=== PATIENT | female | born 1975 | race American Indian/Alaskan Native ===

== ENCOUNTER 2016-08-21 08:41 | Outpatient (CLI) | payer OTHER ==
--- NOTE | 2016-08-21 10:25 | Ultrasound Report ---
RIGHT UPPER QUADRANT ULTRASOUND: HISTORY: Right upper quadrant abdominal pain. Technique: Transabdominal ultrasound imaging with Doppler interrogation. FINDINGS: The gallbladder is sonolucent with no evidence of stones, polyps or wall thickening. The common duct is normal in caliber. Images of the liver parenchyma, pancreas, right kidney and aorta are within normal limits. No perihepatic ascites. IMPRESSION: Unremarkable right upper quadrant ultrasound.
--- NOTE | 2016-08-25 08:47 | Mammography Report ---
Screening mammogram: Routine views demonstrate a small irregular asymmetric density in the inferior right breast. No definite finding in the CC projection. The remainder of the breast pattern bilaterally are generally fatty replaced, symmetric, and unremarkable. CAD used. Impression: Right breast asymmetry. Recommendation: Additional imaging of the right breast. This patient's prior exams however are being requested for comparison. Please wait at least 30 days before pursuing the recommendation so that we may obtain prior exam for comparison report. BI-RADS CATEGORY: 0 = Needs additional imaging evaluation ACR BI-RADS MAMMOGRAPHIC CODES: 0 = Needs additional imaging evaluation; 1 = Negative; 2 = Benign; 3 = Probably benign; 4 = Suspicious; 5 = Malignant; 6 = Known biopsy-proven malignancy COMMENT: 1. Dense breast tissue, i.e., adenosis, fibrocystic changes, etc., may obscure an underlying neoplasm. 2. Approximately 10% of cancers are not detected with mammography. 3. A negative mammography report should not delay biopsy if a clinically suspicious mass is present.
== END 2016-08-21 08:42 | disposition home or self-care (01) ==
LOC: US 08:41
PROVIDERS: ATTEND Internal Medicine
DX: Z12.31 Encounter for screening mammogram for malignant neoplasm of breast (principal); R10.11 Right upper quadrant pain; I10 Essential (primary) hypertension
CPT/HCPCS: 76705; G0202; 77067

== ENCOUNTER 2016-09-11 05:51 | Day surgery (SDC) | payer OTHER ==
[2016-09-11] MEDS ORDERED: WATER FOR IRRIG STERILE IR ONE ×2 (07:14→07:17)
--- NOTE | 2016-09-11 07:20 | Anesthesia Day of Surgery ---
Anesthesia Day of Surgery - Day of Surgery Patient Examined: Yes Patient H&P Reviewed: Yes Patient is NPO: Yes
--- NOTE | 2016-09-11 07:21 | Anesthesia Consultation ---
Anesthesia Consult and Med Hx Date of service: 09/11/16 - Airway Anesthetic Teeth Evaluation: Good ROM Head & Neck: Adequate Mental/Hyoid Distance: Adequate Mallampati Class: Class II Intubation Access Assessment: Probably Good - Pulmonary Exam CTA: Yes - Cardiac Exam Cardiac Exam: RRR - Pre-Operative Health Status ASA Pre-Surgery Classification: ASA2 Proposed Anesthetic Plan: MAC - Pulmonary Hx Smoking: No - Cardiovascular System Hx Hypertension: Yes - Gastrointestinal Hx Gastroesophageal Reflux Disease: Yes
[2016-09-11] MEDS: NACL 0.9% 1000 ML 1,000 ML IV SCH ×2 (07:22→09:12)
[2016-09-11] MEDS ORDERED: DIPRIVAN 10 MG/ML IV ONE (07:25)
--- NOTE | 2016-09-11 07:53 | Short Stay Summary ---
Short Stay Documentation - Allergies and Medications Current Medications: Allergies oxycodone HCl [From Percocet] Allergy (Intermediate, Verified 10/31/15 21:46) Hives latex Allergy (Verified 09/11/16 07:23) Hives,BURNING SENSATION cyclobenzaprine HCl [From Flexeril] Adverse Reaction (Verified 09/11/16 07:23) Headache,HIVES Home Medications Medication Instructions Recorded Confirmed Last Taken Type Hydrochlorothiazide 25 mg PO 3XW 09/11/16 09/11/16 09/08/16 History NexIUM 40 mg PO DAILY 09/11/16 09/11/16 09/10/16 History Norvasc 5 mg PO DAILY 09/11/16 09/11/16 09/11/16 History Phentermine HCl 37.5 mg PO DAILY 09/11/16 09/11/16 09/04/16 History Active Medications Sodium Chloride (Nacl 0.9% 1000 Ml) 1,000 mls @ 50 mls/hr IV DIRECT LYNN Last Admin: 09/11/16 07:22 Dose: 50 mls/hr - Brief post op/procedure progress note Date of procedure: 09/11/16 Pre-op diagnosis: 1. RUQ abdominal pain 2. Functional dyspepsia Post-op diagnosis: same (1. GERD 2. Gastritis) Procedure: EGD with biopsy Anesthesia: MAC Findings: as above Surgeon: AMANDEEP RILEY Estimated blood loss: none Pathology: list (1. Antrum) Specimen disposition: to lab Condition: stable - Disposition Condition at discharge: Stable Disposition: DC-01 TO HOME OR SELFCARE Short Stay Discharge Plan Activity: no restrictions Weight Bearing Status: Full Weight Bearing Diet: regular, low salt Follow up with: SOPHIA MCNEIL MD [Primary Care Provider] - 7 Days
--- NOTE | 2016-09-11 08:28 | Post Anesthesia Evaluation ---
- Post Anesthesia Evaluation Patient Participated: Yes Airway Patent: Yes Stable Respiratory Function: Yes Nausea/Vomiting: No Temp > 96.8F: Yes Pain Manageable: Yes Adequeate Hydration: Yes Anesthesia Complications: No Block Receding Appropriately: Not Applicable Patient on Ventilator: No
[2016-09-11 09:09] VITALS: BP 141/94
== END 2016-09-11 05:52 | disposition home or self-care (01) ==
LOC: GIO 05:51
PROVIDERS: ATTEND Internal Medicine Gastroenterology
DX: K29.50 Unspecified chronic gastritis without bleeding (principal); K21.9 Gastro-esophageal reflux disease without esophagitis; I10 Essential (primary) hypertension; G43.909 Migraine, unspecified, not intractable, without status migrainosus; E66.9 Obesity, unspecified; Z68.41 Body mass index [BMI] 40.0-44.9, adult; Z91.040 Latex allergy status; Z88.8 Allergy status to other drugs, medicaments and biological substances; Z98.890 Other specified postprocedural states; Z90.710 Acquired absence of both cervix and uterus; Z79.899 Other long term (current) drug therapy
CPT/HCPCS: 43239; 88305; 88342; J2704; J7030

== ENCOUNTER 2016-09-19 07:26 | Outpatient (CLI) | payer OTHER ==
[2016-09-19] MEDS ORDERED: WATER FOR INJ (PF) 10 ML ONE (09:14)
[2016-09-19] MEDS ORDERED: KINEVAC IV ONE (09:14)
--- NOTE | 2016-09-19 10:50 | Mammography Report ---
Spot magnification of focal asymmetry lower right breast in the upper left breast: Findings: There is complete effacement noted of the density at the lower right breast and upper left breast on spot views. No microcalcifications are distinct mass is seen. Impression: Benign findings. Annual followup recommended. BI-RADS CATEGORY: 2 = Benign ACR BI-RADS MAMMOGRAPHIC CODES: 0 = Needs additional imaging evaluation; 1 = Negative; 2 = Benign; 3 = Probably benign; 4 = Suspicious; 5 = Malignant; 6 = Known biopsy-proven malignancy COMMENT: 1. Dense breast tissue, i.e., adenosis, fibrocystic changes, etc., may obscure an underlying neoplasm. 2. Approximately 10% of cancers are not detected with mammography. 3. A negative mammography report should not delay biopsy if a clinically suspicious mass is present. COMMENT: Patient follow-up letters are generated in [employer].
== END 2016-09-19 07:27 | disposition home or self-care (01) ==
LOC: US 07:26
PROVIDERS: ATTEND Internal Medicine
DX: R92.8 Other abnormal and inconclusive findings on diagnostic imaging of breast (principal); I10 Essential (primary) hypertension
CPT/HCPCS: 77066; G0204; J2805

== ENCOUNTER 2016-09-19 07:36 | Outpatient (CLI) | payer OTHER ==
[2016-09-19] MEDS ORDERED: KINEVAC IV ONE ×2 (09:14→09:17)
[2016-09-19] MEDS ORDERED: WATER FOR INJ (PF) ONE (09:14)
--- NOTE | 2016-09-19 10:56 | Nuclear Medicine Report ---
HIDA WITH CCK INDICATION: RUQ pain. COMPARISON: None similar. FINDINGS: Dynamic right upper quadrant imaging performed in the anterior projection over 60 minutes following uneventful intravenous administration of 5 mCi of Technetium 99m Choletec. Prompt and homogenous hepatic radiotracer uptake with subsequent washout seen with gallbladder activity noted at 30 minutes. Liver appears enlarged. Bowel activity seen on imaging carried out to 90 minutes. Subsequently, 2.4 mcg of cholecystokinin infused intravenously over a period of 3 minutes with patients symptoms of nausea and cramping reproduced. The calculated ejection fraction is 94% (normal greater than 35%). CONCLUSION: 1. No evidence of cholecystitis. Patient's symptoms though reproduced following CCK. Hyperkinetic gallbladder may be correlated for clinically in an appropriate setting. 2. Possible hepatomegaly. Thank you for the opportunity to participate in this patient's care.
== END 2016-09-19 07:37 | disposition home or self-care (01) ==
LOC: NM 07:36
PROVIDERS: ATTEND Internal Medicine Gastroenterology
DX: R10.11 Right upper quadrant pain (principal); R11.0 Nausea; R25.2 Cramp and spasm
CPT/HCPCS: 78227; A9537; J2805; 77066; G0204

== ENCOUNTER 2016-10-24 11:08 | Day surgery (SDC) | payer OTHER ==
[~2016-10-24 11:08] MED LIST: ANCEF/STERILE WATER 2 GM/20 ML IV NR; MARCAINE 0.25% INFILTRATI ONE; NACL 0.9% IR ONE; PEPCID PO NR; VERSED IV NR
--- NOTE | 2016-10-24 11:47 | Anesthesia Consultation ---
Anesthesia Consult and Med Hx Date of service: 10/24/16 - Airway Anesthetic Teeth Evaluation: Good ROM Head & Neck: Adequate Mental/Hyoid Distance: Adequate Mallampati Class: Class II Intubation Access Assessment: Probably Good - Pulmonary Exam CTA: Yes - Cardiac Exam Cardiac Exam: RRR - Pre-Operative Health Status ASA Pre-Surgery Classification: ASA2 Proposed Anesthetic Plan: General - Pulmonary Hx Smoking: No Hx Sleep Apnea: No (MIRYAM PRE SCREEN HIGH RISK) - Cardiovascular System Hx Hypertension: Yes (X 3 YRS) - Central Nervous System Hx Back Pain: Yes (NECK AND BACK PAIN) - Gastrointestinal Hx Gastroesophageal Reflux Disease: Yes - Other Systems Hx Cancer: No Hx Obesity: Yes
--- NOTE | 2016-10-24 11:47 | Anesthesia Day of Surgery ---
Anesthesia Day of Surgery - Day of Surgery Patient Examined: Yes Patient H&P Reviewed: Yes Patient is NPO: Yes
[2016-10-24] MEDS: LACTATED RINGERS 1,000 ML IV SCH ×2 (11:57→16:47)
[2016-10-24] MEDS ORDERED: PEPCID PO NR (12:12)
[2016-10-24] MEDS ORDERED: MARCAINE 0.25% INFILTRATI ONE (14:23)
[2016-10-24] MEDS ORDERED: ZEMURON IV ONE (14:24)
[2016-10-24] MEDS ORDERED: DILAUDID ONE ×2 (14:24→16:11)
[2016-10-24] MEDS ORDERED: XYLOCAINE MPF 2% ONE (14:24)
[2016-10-24] MEDS ORDERED: QUELICIN ONE (14:24)
[2016-10-24] MEDS ORDERED: DIPRIVAN 10 MG/ML IV ONE (14:24)
[2016-10-24] MEDS ORDERED: DECADRON ONE (15:10)
[2016-10-24] MEDS ORDERED: ZOFRAN ONE (15:10)
[2016-10-24] MEDS ORDERED: TORADOL ONE (16:05)
[2016-10-24] MEDS ORDERED: NORCO 5/325 ONE (16:06)
[2016-10-24] MEDS: DILAUDID IV PRN ×2 (16:10→16:20)
[2016-10-24] MEDS ORDERED: TORADOL IV PRN (16:14)
[2016-10-24] MEDS ORDERED: ZOFRAN IV PRN (16:14)
--- NOTE | 2016-10-24 16:37 | Post Operative Note ---
Pre-op diagnosis: Biliary dyskinesia Post-op diagnosis: same Findings: cholesterolosis Procedure: laparoscopic cholecystectomy Anesthesia: GETA Surgeon: NICANOR MAX [employer] Contact Worker: JASMINA MCWILLIAMS Estimated blood loss: minimal Pathology: list (gallbladder) Specimen disposition: to lab Condition: stable Disposition: PACU
--- NOTE | 2016-10-24 16:40 | Discharge Summary ---
Short Stay Discharge Plan Weight Bearing Status: Full Weight Bearing Diet: regular Wound: open to air Follow up with: SOPHIA MCNEIL MD [Primary Care Provider] - 7 Days Prescriptions: HYDROcodone/APAP 7.5-325 [Bouton 7.5-325 mg TAB] 1 each PO Q6HR PRN #20 tablet PRN Reason: Pain Ondansetron [Zofran TAB] 4 mg PO Q8HR PRN #14 tablet PRN Reason: Nausea traMADol [Ultram 50 MG tab] 50 mg PO Q6HR PRN #14 tablet PRN Reason: Pain
[2016-10-24] MEDS ORDERED: NORCO 5/325 PO ONE (17:15)
[2016-10-24 17:59] VITALS: BP 123/70
--- NOTE | 2016-10-24 21:35 | Operative Report ---
PREOPERATIVE DIAGNOSIS: Biliary dyskinesia. POSTOPERATIVE DIAGNOSES: Biliary dyskinesia plus cholesterolosis of the gallbladder. OPERATIVE PROCEDURE: Laparoscopic cholecystectomy. ANESTHESIA: General endotracheal. SURGEON: Riki Birch MD DENIER CONTROL OPERATOR: Bernice Georges MD SPECIMENS: Gallbladder. BLOOD LOSS: Minimal. INDICATIONS: The patient is a 41-year-old female patient with a BMI of 42, presenting with recurrent right upper quadrant pain. Ultrasound of the gallbladder was normal. HIDA scan showed a 90% ejection fraction, but she has reproducible symptoms. She is brought in for a laparoscopic cholecystectomy. She has undergone an umbilical hernia repair with mesh several years ago. FINDINGS: Omental adhesions to the mesh that was placed in the umbilical area. No bowel adhesions were noted. Liver showed evidence of mild fatty infiltration. Gallbladder showed evidence of cholesterolosis. Cystic duct is of normal caliber. Bile duct did not show any dilatation. Visualized part of the bowel loops in the right upper quadrant appeared normal. DESCRIPTION OF PROCEDURE: After satisfactory induction of general endotracheal anesthesia, abdomen was prepped and draped. A right lateral flank incision was made and a Veress needle was inserted in the peritoneal cavity. After adequate carbon dioxide insufflation up to 15 mmHg, a 5 mm trocar was inserted, through this a 5 mm, 30-degree angle scope was placed and above findings were noted. Another 5 mm port was placed medially between the umbilicus and this trocar. The adhesions in the supraumbilical area between the mesh and the omentum were taken down using minimal amount of cautery. Another 5 mm port was placed above the umbilicus under direct visualization. Camera was changed to this location with the head up in the left side position, an 11 mm epigastric trocar was placed. Gallbladder was held at the fundus and at the infundibulum by the assisting surgeon. Cystic duct was well delineated. Cystic and bile duct junction was identified and after identifying the anatomy, the cystic duct clips were applied and as were away from the cystic bile duct junction as possible, the cystic duct was divided. Cystic artery likewise was identified and clips were applied and divided. Gallbladder was removed from the liver bed by using hook attached to cautery. No bleeding was encountered from the liver bed. After removing the gallbladder, it was retrieved into an EndoCatch bag and was pulled out through the epigastric trocar. Trocar was replaced and all the clips were inspected and found to be intact and hemostasis was quite adequate. Desufflation was done and all the trocars were removed under direct visualization. No bleeding was noted at the trocar sites. All the incisions were closed with 4-0 Monocryl sutures. There was minimal blood loss and she tolerated the procedure well and transferred to postanesthesia care unit in satisfactory condition. JOB# [id number] ALLISONN/LISA
== END 2016-10-24 18:20 | disposition home or self-care (01) ==
LOC: OR 11:08
PROVIDERS: ATTEND Surgery
DX: K82.8 Other specified diseases of gallbladder (principal); I10 Essential (primary) hypertension; K21.9 Gastro-esophageal reflux disease without esophagitis; F32.9 Major depressive disorder, single episode, unspecified; G43.109 Migraine with aura, not intractable, without status migrainosus; E66.9 Obesity, unspecified; Z68.41 Body mass index [BMI] 40.0-44.9, adult; Z90.710 Acquired absence of both cervix and uterus; Z98.890 Other specified postprocedural states; Z79.899 Other long term (current) drug therapy; Z91.040 Latex allergy status; Z88.8 Allergy status to other drugs, medicaments and biological substances; Z72.89 Other problems related to lifestyle; Z91.018 Allergy to other foods; Z80.0 Family history of malignant neoplasm of digestive organs; Z80.41 Family history of malignant neoplasm of ovary; Z80.3 Family history of malignant neoplasm of breast
CPT/HCPCS: 36415; 47562; 84132; 88304; J0690; J1100; J1170; J1885; J2250; J2405; J2704; J7120; J0330

== ENCOUNTER 2017-10-27 08:16 | Outpatient (CLI) | payer OTHER ==
--- NOTE | 2017-10-27 16:32 | Mammography Report ---
BILATERAL DIGITAL SCREENING MAMMOGRAM with CAD: 10/27/17 08:16:00 CLINICAL: Routine screening. COMPARISON: 09/19/16 FINDINGS: The breasts are mostly fatty with scattered bilateral fibroglandular densities.No mass, architectural distortion or suspicious calcifications. IMPRESSION: No mammographic evidence of malignancy. BI-RADS CATEGORY: 1 -- Negative RECOMMENDATION: Routine mammographic screening in one year. COMMENT: Patient follow-up letters are generated by our [employer] application.
== END 2017-10-27 08:17 | disposition home or self-care (01) ==
LOC: MAMMO 08:16
PROVIDERS: ATTEND Internal Medicine
DX: Z12.31 Encounter for screening mammogram for malignant neoplasm of breast (principal); E66.9 Obesity, unspecified; I10 Essential (primary) hypertension; K21.9 Gastro-esophageal reflux disease without esophagitis; F32.9 Major depressive disorder, single episode, unspecified; Z91.040 Latex allergy status; Z91.018 Allergy to other foods; Z88.6 Allergy status to analgesic agent; Z88.5 Allergy status to narcotic agent; Z88.8 Allergy status to other drugs, medicaments and biological substances; Z90.710 Acquired absence of both cervix and uterus
CPT/HCPCS: 77067

== ENCOUNTER 2019-05-09 08:51 | Outpatient (CLI) | payer OTHER ==
--- NOTE | 2019-05-10 09:48 | Mammography Report ---
DIGITAL SCREENING MAMMOGRAM WITH CAD, 05/09/2019 INDICATION: Routine screening mammography. TECHNIQUE: Digital bilateral 2D mammography was obtained in the craniocaudal and mediolateral obliq ue projections. This examination was interpreted with the benefit of Computer-Aided Detection analysi s. COMPARISON: 10/27/2017 FINDINGS: Breast Density: There are scattered areas of fibroglandular density. There is no evidence of dominant mass, suspicious calcifications or architectural distortion in eithe r breast. IMPRESSION: No mammographic evidence of malignancy. Follow up recommendation: Routine yearly BI-RADS Category 2: Benign. A "normal" or negative report should not discourage follow up or biopsy of a clinically significant f inding. A written summary of these findings will be mailed to the patient. The patient will be entered into a mammography reporting system which will generate a reminder letter for the patient's next appointmen t at the appropriate interval. The [employer] recommends yearly mammograms starting at age 40 and continuing as l epifanio as a woman is in good health. Breast MRI is recommended for women with an approximate 20-25% or greater lifetime risk of breast cancer, including women with a strong family history of breast or ova nirmala cancer or who have been treated for Hodgkin's disease. Signer Name: Demian Gómez MD Signed: 05/10/2019 9:43 AM Workstation Name: [id number]
== END 2019-05-09 08:52 | disposition home or self-care (01) ==
LOC: SPVWC 08:51
PROVIDERS: ATTEND Internal Medicine
DX: Z12.31 Encounter for screening mammogram for malignant neoplasm of breast (principal); N64.89 Other specified disorders of breast
CPT/HCPCS: 77067

== ENCOUNTER 2020-06-27 11:35 | Outpatient (CLI) | payer OTHER ==
--- NOTE | 2020-06-27 14:12 | Mammography Report ---
DIGITAL SCREENING MAMMOGRAM WITH CAD, 06/27/2020 CLINICAL INFORMATION / INDICATION: Routine screening mammography. SCREENING MAMMO TECHNIQUE: Digital bilateral 2D mammography was obtained in the craniocaudal and mediolateral obliqu e projections. This examination was interpreted with the benefit of Computer-Aided Detection analysis . COMPARISON: 08/21/2016 through 05/09/2019. FINDINGS: Breast Density: There are scattered areas of fibroglandular density. No dominant mass, suspicious calcifications, or architectural distortion in either breast. IMPRESSION: No mammographic evidence of malignancy. Follow up recommendation: Routine yearly BI-RADS Category 1: Negative. A "normal" or negative report should not discourage follow up or biopsy of a clinically significant f inding. A written summary of these findings will be mailed to the patient. The patient will be entered into a mammography reporting system which will generate a reminder letter for the patient's next appointmen t at the appropriate interval. The [employer] recommends yearly mammograms starting at age 40 and continuing as l epifanio as a woman is in good health. Breast MRI is recommended for women with an approximate 20-25% or greater lifetime risk of breast cancer, including women with a strong family history of breast or ova nirmala cancer or who have been treated for Hodgkin's disease. Signer Name: Chi Allen MD Signed: 06/27/2020 12:44 PM Workstation Name: [id number]
== END 2020-06-27 11:36 | disposition home or self-care (01) ==
LOC: MAMMO 11:35
PROVIDERS: ATTEND Internal Medicine
DX: Z12.31 Encounter for screening mammogram for malignant neoplasm of breast (principal)
CPT/HCPCS: 77067